=== PATIENT | male | born 1990 | race Caucasian/White ===

== ENCOUNTER 2018-07-18 06:41 | Emergency (ER) | payer SELFPAY ==
[~2018-07-18] VITALS: Wt 90.0 kg
[2018-07-18 06:44] VITALS: BP 150/100; PULSE 124; RESP 20
== END 2018-07-18 09:15 | disposition left against medical advice (07) ==
LOC: E/R 06:41
DX: Z53.21 Procedure and treatment not carried out due to patient leaving prior to being seen by health care provider (principal)

== ENCOUNTER 2018-07-18 13:01 | Emergency (ER) | payer MEDICAID ==
[~2018-07-18] VITALS: Wt 90.0 kg
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
[2018-07-18] MEDS ORDERED: LORAZEPAM 1 MG TAB PO ONE (14:00)
[2018-07-18 14:33] VITALS: BP 147/89; PULSE 101; RESP 18
== END 2018-07-18 14:36 | disposition home or self-care (01) ==
LOC: E/R 13:01
DX: F10.230 Alcohol dependence with withdrawal, uncomplicated (principal); Z87.891 Personal history of nicotine dependence
CPT/HCPCS: Z7502; Z7610; 99283

== ENCOUNTER 2018-08-06 04:32 | Emergency (ER) | payer MEDICAID ==
[~2018-08-06] VITALS: Ht 170.2 cm; Wt 90.0 kg
[2018-08-06 04:36] VITALS: Ht 170.2 cm; Wt 90.0 kg
[2018-08-06] MEDS ORDERED: LORAZEPAM 1 MG TAB PO ONE (07:30)
[2018-08-06 07:46] VITALS: BP 130/78; PULSE 100; RESP 20
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
== END 2018-08-06 07:49 | disposition left against medical advice (07) ==
LOC: E/R 04:32
DX: F10.230 Alcohol dependence with withdrawal, uncomplicated (principal); R40.2142 Coma scale, eyes open, spontaneous, at arrival to emergency department; R40.2362 Coma scale, best motor response, obeys commands, at arrival to emergency department; Z87.891 Personal history of nicotine dependence
CPT/HCPCS: Z7502; Z7610; 99283